=== PATIENT | male | born 1955 | race Hispanic/Latino ===

== ENCOUNTER 2023-07-17 10:30 | Outpatient (CLI) | payer OTHER | END 2023-07-17 10:31 | disposition home or self-care (01) | LOC: BICULT 10:30 → EDBD 10:30 → BICULT 10:31 | PROVIDERS: ATTEND Family Medicine | DX: K46.9 Unspecified abdominal hernia without obstruction or gangrene (principal); K43.9 Ventral hernia without obstruction or gangrene | CPT/HCPCS: 76700 ==